=== PATIENT | female | born 1985 | race Caucasian/White ===

== ENCOUNTER 2017-06-16 07:34 | Emergency (ER) | payer OTHER ==
[2017-06-16] MEDS ORDERED: predniSONE 10 MG Tab PO ONE (07:49)
[2017-06-16] MEDS ORDERED: diphenhydrAMINE 25 MG Cap PO ONE (07:51)
[2017-06-16] MEDS ORDERED: predniSONE 20 MG Tab PO ONE (08:00)
[2017-06-16 08:55] VITALS: BP 130/85
--- NOTE | 2017-06-16 09:00 | EDM.PDOC ---
ED HPI GENERAL MEDICAL PROBLEM - General Chief Complaint: Allergic Reaction Stated Complaint: allergic reaction Time Seen by Provider: 06/16/17 07:45 Source of Information: Reports: Patient History Limitations: Reports: No Limitations - History of Present Illness INITIAL COMMENTS - FREE TEXT/NARRATIVE: Patient is a 32 year old woman who accidently took an unknown pill that her children's Day Care provider gave her. It has caused her to have hives and itch all over her body. She is having no breathing problems and she has no pain , fever or chills. No other complaints. Onset: Today, Sudden Onset Date: 06/16/17 Onset Time: 07:20 Duration: Minutes: (30), Getting Worse Location: Reports: Head, Face, Neck, Chest, Upper Extremity, Left, Upper Extremity, Right Quality: Reports: Other (Itching and hot.) Severity: Moderate Improves with: Reports: None Worsens with: Reports: None Context: Reports: Other (Just had taken unknown medication.) Associated Symptoms: Reports: No Other Symptoms - Related Data Allergies Allergy/AdvReac Type Severity Reaction Status Date / Time No Known Allergies Allergy Verified 01/31/16 04:04 Home Meds: Home Meds Omeprazole 20 mg PO DAILY 01/31/16 [History] Past Medical History - Past Health History Medical/Surgical History: Denies Medical/Surgical History Gastrointestinal History: Reports: GERD 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: , Spontaneous Endocrine/Metabolic History: Reports: Diabetes, Gestational, Obesity/BMI 30+ - Infectious Disease History Infectious Disease History: Reports: Chicken Pox - Past Surgical History HEENT Surgical History: Reports: Other (See Below) Musculoskeletal Surgical History: Reports: Other (See Below) Social & Family History - Family History OBGYN: Reports: Psychiatric: Reports: Anxiety, Depression - Tobacco Use Smoking Status *Q: Current Every Day Smoker Years of Tobacco use: 13 Packs/Tins Daily: 0.5 - Recreational Drug Use Recreational Drug Use: No ED ROS ALLERGIC REACTION - Review of Systems Review Of Systems: See Below Constitutional: Reports: No Symptoms HEENT: Reports: No Symptoms Respiratory: Reports: No Symptoms Cardiovascular: Reports: No Symptoms Endocrine: Reports: No Symptoms GI/Abdominal: Reports: No Symptoms : Reports: No Symptoms Musculoskeletal: Reports: No Symptoms Skin: Reports: Rash, Urticaria Neurological: Reports: No Symptoms Psychiatric: Reports: No Symptoms Hematologic/Lymphatic: Reports: No Symptoms Immunologic: Reports: No Symptoms ED EXAM GENERAL NO PERIP PULSE - Physical Exam Exam: See Below Exam Limited By: No Limitations General Appearance: Alert Eye Exam: Bilateral Eye: EOMI, Normal Fundi, Normal Inspection, PERRL Ears: Normal External Exam, Normal Canal, Hearing Grossly Normal, Normal TMs Nose: Normal Inspection, Normal Mucosa, No Blood Throat/Mouth: Normal Inspection, Normal Lips, Normal Teeth, Normal Gums, Normal Oropharynx, Normal Voice, No Airway Compromise Head: Atraumatic, Normocephalic Neck: Normal Inspection, Supple, Non-Tender, Full Range of Motion Respiratory/Chest: No Respiratory Distress, Lungs Clear, Normal Breath Sounds, No Accessory Muscle Use, Chest Non-Tender Cardiovascular: Normal Peripheral Pulses, Regular Rate, Rhythm, No Edema, No Gallop, No JVD, No Murmur, No Rub GI/Abdominal: Normal Bowel Sounds, Soft, Non-Tender, No Organomegaly, No Distention, No Abnormal Bruit, No Mass Back Exam: Normal Inspection, Full Range of Motion, NT Extremities: Normal Inspection, Normal Range of Motion, Non-Tender, Normal Capillary Refill, No Pedal Edema Neurological: Alert, Oriented, CN II-XII Intact, Normal Cognition, Normal Gait, Normal Reflexes, No Motor/Sensory Deficits Psychiatric: Normal Affect, Normal Mood Skin Exam: Erythema, Increased Warmth, Rash (Urticaria) Lymphatic: No Adenopathy Course - Vital Signs Text/Narrative:: Uneventful ED course. She was given 180 mg of Fexofenadine, 50 mg of oral benedryl and 80 mg of oral Prednisone and her rash faded and she felt much better. She will take Fexofenadine 180 mg po daily, Benedryl 50 mg po q 4 hours prn and Prednisnone in a 15 day taper: 50, 40, 30, 20, and 10 mg daily each for 3 days in a 15 day taper. She will go back to work on 06-19-17. She will return to ED if needed. Last Recorded V/S: Last Vital Signs Temp 36.3 C 06/16/17 08:50 Pulse 113 H 06/16/17 08:50 Resp 22 H 06/16/17 08:50 BP 130/85 06/16/17 08:50 Pulse Ox 100 06/16/17 08:50 - Orders/Labs/Meds Orders: Active Orders 24 hr Category Date Time Status Fexofenadine [Alice] Med 06/16/17 09:00 Active 180 mg PO DAILY Medication Orders Fexofenadine HCl (Alice) 180 mg PO DAILY AISHA Last Admin: 06/16/17 08:01 Dose: 180 mg Labs: Laboratory Tests 06/16/17 06/16/17 Range/Units 08:13 08:13 WBC 6.6 (4.5-12.0) X10-3/uL RBC 4.92 (3.23-5.20) x10(6)uL Hgb 14.9 (11.5-15.5) g/dL Hct 42.7 (30.0-51.3) % MCV 86.7 (80-96) fL MCH 30.3 (27.7-33.6) pg MCHC 35.0 (32.2-35.4) g/dL RDW 12.6 (11.5-15.5) % Plt Count 148 (125-369) X10(3)uL MPV 9.6 (7.4-10.4) fL Neut % (Auto) 74.7 (46-82) % Lymph % (Auto) 19.2 (13-37) % [place] % (Auto) 4.4 (4-12) % Eos % (Auto) 1 (1.0-5.0) % Baso % (Auto) 1 (0-2) % Neut # (Auto) 4.9 (1.6-8.3) # Lymph # (Auto) 1.3 (0.6-5.0) # [place] # (Auto) 0.3 (0.0-1.3) # Eos # (Auto) 0.1 (0.0-0.8) # Baso # (Auto) 0.0 (0.0-0.2) # Sodium 132 L (135-145) mmol/L Potassium 3.7 (3.5-5.3) mmol/L Chloride 103 (100-110) mmol/L Carbon Dioxide 21 L (23-29) mmol/L BUN 15 (5-20) mg/dL Creatinine 0.7 (0.6-1.3) mg/dL Est Cr Clr Drug Dosing TNP Estimated GFR (MDRD) > 60 (>60) BUN/Creatinine Ratio 21.4 H (9-20) Glucose 123 H (80-116) mg/dL Calcium 8.6 (8.6-10.2) mg/dL Total Bilirubin 0.9 (0.1-1.3) mg/dL AST 24 D (5-27) IU/L ALT 29 H D (14-26) IU/L Alkaline Phosphatase 39 L (56-112) IU/L Total Protein 7.4 (6.0-8.0) g/dL Albumin 4.3 (3.5-5.2) g/dL Globulin 3.1 g/dL Albumin/Globulin Ratio 1.4 Meds: Medications Generic Name Dose Route Start Last Admin Trade Name Freq PRN Reason Stop Dose Admin Fexofenadine HCl 180 mg 06/16/17 09:00 06/16/17 08:01 Alice PO 180 mg DAILY AISHA Administration Discontinued Medications Generic Name Dose Route Start Last Admin Trade Name Freq PRN Reason Stop Dose Admin Diphenhydramine HCl 50 mg 06/16/17 07:51 06/16/17 08:00 Benadryl PO 06/16/17 07:52 50 mg ONETIME ONE Administration Prednisone 80 mg 06/16/17 08:00 06/16/17 08:01 Prednisone PO 06/16/17 08:01 80 mg ONETIME ONE Administration Departure - Departure Time of Disposition: 09:05 Disposition: Home, Self-Care 01 Condition: Good Clinical Impression: Urticaria medicamentosa - Discharge Information Referrals: Kristian Rhoades MD [Primary Care Provider] - - My Orders Last 24 Hours: My Active Orders 06/16/17 09:00 Fexofenadine [Alice] 180 mg PO DAILY - Assessment/Plan Last 24 Hours: My Active Orders 06/16/17 09:00 Fexofenadine [Alice] 180 mg PO DAILY
== END 2017-06-16 09:10 | disposition home or self-care (01) ==
LOC: FB.ED 07:34
DX: L50.0 Allergic urticaria (principal); T50.905A Adverse effect of unspecified drugs, medicaments and biological substances, initial encounter; E11.9 Type 2 diabetes mellitus without complications; F17.210 Nicotine dependence, cigarettes, uncomplicated
CPT/HCPCS: 36415; 80053; 85025; 99283; A9270

== ENCOUNTER 2017-07-29 16:46 | Emergency (ER) | payer OTHER ==
[2017-07-29] MEDS ORDERED: Ondansetron 8 MG Tab.DIS PO ONE (16:54)
[2017-07-29] MEDS ORDERED: diphenhydrAMINE 50 MG Cap PO ONE (16:54)
--- NOTE | 2017-07-29 16:56 | EDM.PDOC ---
ED HPI GENERAL MEDICAL PROBLEM - General Stated Complaint: SOB Time Seen by Provider: 07/29/17 16:46 Source of Information: Reports: Patient History Limitations: Reports: No Limitations - History of Present Illness INITIAL COMMENTS - FREE TEXT/NARRATIVE: 32 y.o.w.f came to the ed because of tingling of her fingers, hyperventilation and extremely anxious. Pt is 5 days late with her period. Pt had those symptoms in the past but they are becoming more frequent now. Pt was out drinking last night, she smokes daily. She has left upper arm pain off on as well. No N/V/D. Pt denies stress at work or at home. No cause of her anxiety was found yet. BP 138/121 pulse 121 RR 25 Pulse ox 100% on RA. Onset: Today Onset Date: 07/29/17 Onset Time: 13:00 Duration: Hour(s):, Intermittent Location: Reports: Generalized Quality: Reports: Other (anxiety with hyperventilation) Severity: Moderate Improves with: Reports: Rest Context: Reports: Other Associated Symptoms: Reports: Other (finger tingling ) - Related Data Allergies Allergy/AdvReac Type Severity Reaction Status Date / Time No Known Allergies Allergy Verified 07/29/17 17:16 Home Meds: Home Meds Omeprazole 20 mg PO DAILY 01/31/16 [History] Past Medical History - Past Health History Medical/Surgical History: Denies Medical/Surgical History Gastrointestinal History: Reports: GERD [employer]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: , Spontaneous Endocrine/Metabolic History: Reports: Diabetes, Gestational, Obesity/BMI 30+ - Infectious Disease History Infectious Disease History: Reports: Chicken Pox - Past Surgical History HEENT Surgical History: Reports: Other (See Below) Musculoskeletal Surgical History: Reports: Other (See Below) Social & Family History - Family History OBGYN: Reports: Psychiatric: Reports: Anxiety, Depression - Tobacco Use Smoking Status *Q: Current Every Day Smoker Years of Tobacco use: 13 Packs/Tins Daily: 0.5 - Alcohol Use Days Per Week of Alcohol Use: 1 Number of Drinks Per Day: 1 Total Drinks Per Week: 1 - Recreational Drug Use Recreational Drug Use: No ED ROS GENERAL - Review of Systems Review Of Systems: See Below Constitutional: Reports: No Symptoms HEENT: Reports: No Symptoms Respiratory: Reports: Shortness of Breath Cardiovascular: Reports: No Symptoms Endocrine: Reports: No Symptoms GI/Abdominal: Reports: No Symptoms : Reports: No Symptoms Musculoskeletal: Reports: No Symptoms Skin: Reports: No Symptoms Neurological: Reports: Dizziness Psychiatric: Reports: Agitation, Anxiety Hematologic/Lymphatic: Reports: No Symptoms Immunologic: Reports: No Symptoms ED EXAM, GI/ABD - Physical Exam Exam: See Below Exam Limited By: No Limitations General Appearance: Alert, WD/WN, Anxious Eyes: Bilateral: Normal Appearance Ears: Normal External Exam Nose: Normal Inspection Throat/Mouth: Normal Inspection, Normal Lips Head: Atraumatic, Normocephalic Neck: Normal Inspection, Supple, Non-Tender, Full Range of Motion Respiratory/Chest: No Respiratory Distress, Lungs Clear, Normal Breath Sounds Cardiovascular: Normal Peripheral Pulses GI/Abdominal Exam: Normal Bowel Sounds, Soft, Non-Tender (Female) Exam: Deferred Rectal (Female) Exam: Deferred Back Exam: Normal Inspection, Full Range of Motion Extremities: Normal Inspection, Normal Range of Motion, Non-Tender Neurological: Alert, Oriented, CN II-XII Intact, Normal Cognition, Normal Gait Psychiatric: Normal Affect, Anxious Skin Exam: Warm, Dry, Intact, Normal Color, No Rash Lymphatic: No Adenopathy EKG INTERPRETATION EKG Date: 07/29/17 Time: 18:00 Rhythm: NSR Rate (Beats/Min): 85 [place]: Normal P-Wave: Present QRS: Normal ST-T: Normal QT: Normal Comparison: NA - No Prior EKG Course - Vital Signs Text/Narrative:: 32 y.o.w.f came to the ed because of tingling of her fingers, hyperventilation and extremely anxious. Pt is 5 days late with her period. Pt had those symptoms in the past but they are becoming more frequent now. Pt was out drinking last night, she smokes daily. She has left upper arm pain off on as well. No N/V/D. Pt denies stress at work or at home. No cause of her anxiety was found yet. BP 138/121 pulse 121 RR 25 Pulse ox 100% on RA. PE: WNWD WF hyperventilating, anxious, left arm pain off/on Labs: UA, HCG and UDS were neg ECG: NSR Impression: Anxiety attack Tx: Benadryl Reexam: Improved Plan: D/C with instructions Last Recorded V/S: Last Vital Signs Temp 37.2 C 07/29/17 16:46 Pulse 72 07/29/17 18:16 Resp 16 07/29/17 18:16 BP 133/89 07/29/17 17:40 Pulse Ox 100 07/29/17 18:16 - Orders/Labs/Meds Orders: Active Orders 24 hr Category Date Time Status EKG Documentation Completion [RC] ASDIRECTED Care 07/29/17 18:00 Active EKG 12 Lead [EK] Routine Ther 07/29/17 17:59 Ordered Labs: Laboratory Tests 07/29/17 07/29/17 07/29/17 Range/Units 17:06 17:06 17:06 Urine Color Yellow (YELLOW) Urine Appearance Clear (CLEAR) Urine pH 6.5 (5.0-6.5) Ur Specific [place] 1.020 (1.010-1.025) Urine Protein Negative (NEGATIVE) mg/dL Urine Glucose (UA) Normal (NEGATIVE) mg/dL Urine Ketones Negative (NEGATIVE) mg/dL Urine Occult Blood Negative (NEGATIVE) Urine Nitrite Negative (NEGATIVE) Urine Bilirubin Negative (NEGATIVE) Urine Urobilinogen Normal (NEGATIVE) mg/dL Ur Leukocyte Esterase Negative (NEGATIVE) Urine RBC 0-5 (0) Urine WBC 0-5 (0) Ur Squamous Epith Cells Moderate H (NS,R,O) Urine Bacteria Few H (NS) Urine HCG, Qual Negative (NEGATIVE) Urine Opiates Screen Negative (NEGATIVE) Ur Oxycodone Screen Negative (NEGATIVE) Ur Propoxyphene Screen Negative (NEGATIVE) Ur Barbituates Screen Negative (NEGATIVE) Ur Tricyclics Screen Negative (NEGATIVE) Ur Phencyclidine Scrn Negative (NEGATIVE) Ur Amphetamine Screen Negative (NEGATIVE) Urine MDMA Screen Negative (NEGATIVE) U Benzodiazepines Scrn Negative (NEGATIVE) U Cocaine Metab Screen Negative (NEGATIVE) U Marijuana (THC) Screen Negative (NEGATIVE) Meds: Medications Discontinued Medications Generic Name Dose Route Start Last Admin Trade Name Freq PRN Reason Stop Dose Admin Diphenhydramine HCl 50 mg 07/29/17 16:54 07/29/17 17:03 Benadryl PO 07/29/17 16:55 50 mg ONETIME ONE Administration Diphenhydramine HCl Confirm 07/29/17 17:11 Benadryl Administered 07/29/17 17:12 Dose 50 mg .ROUTE .STK-MED ONE Ondansetron HCl 8 mg 07/29/17 16:54 07/29/17 17:03 Zofran Odt PO 07/29/17 16:55 8 mg ONETIME ONE Administration Departure - Departure Time of Disposition: 18:14 Disposition: Home, Self-Care 01 Condition: Good Clinical Impression: Anxiety - Discharge Information Instructions: Hyperventilation, Panic Attacks Referrals: Kristian Rhoades MD [Primary Care Provider] - Forms: ED Department Discharge Additional Instructions: Please take Benadryl for your anxiety, please quit tobacco use, please f/u with your PMD, please come back if your symptoms get worse acutely - My Orders Last 24 Hours: My Active Orders 07/29/17 17:59 EKG 12 Lead [EK] Routine 07/29/17 18:00 EKG Documentation Completion [RC] ASDIRECTED - Assessment/Plan Last 24 Hours: My Active Orders 07/29/17 17:59 EKG 12 Lead [EK] Routine 07/29/17 18:00 EKG Documentation Completion [RC] ASDIRECTED
[2017-07-29] MEDS ORDERED: diphenhydrAMINE 50 MG Cap ONE (17:11)
[2017-07-29 17:49] VITALS: BP 133/89
== END 2017-07-29 18:20 | disposition home or self-care (01) ==
LOC: FB.ED 16:46
DX: F41.9 Anxiety disorder, unspecified (principal); F17.210 Nicotine dependence, cigarettes, uncomplicated
CPT/HCPCS: 80305; 81001; 81025; 93005; 99283; A9270

== ENCOUNTER 2021-07-06 08:31 | Emergency (ER) | payer OTHER ==
--- NOTE | 2021-07-06 08:47 | EDM.PDOC ---
ED HPI GENERAL MEDICAL PROBLEM - General Stated Complaint: left sided facial dropping, jaw pain Time Seen by Provider: 07/06/21 08:45 Source of Information: Reports: Patient History Limitations: Reports: No Limitations - History of Present Illness INITIAL COMMENTS - FREE TEXT/NARRATIVE: Patient was diagnosed with tooth infection yesterday and was prescribed amoxicillin and today she noticed ptosis on the left and drooping on the rt. 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: , Spontaneous Psychiatric History: Reports: Anxiety Endocrine/Metabolic History: Reports: Diabetes, Gestational, Obesity/BMI 30+ - Infectious Disease History Infectious Disease History: Reports: Chicken Pox - Past Surgical History HEENT Surgical History: Reports: Other (See Below) Musculoskeletal Surgical History: Reports: Other (See Below) Social & Family History - Family History OBGYN: Reports: Psychiatric: Reports: Anxiety, Depression ED ROS GENERAL - Review of Systems Review Of Systems: See Below Constitutional: Reports: No Symptoms HEENT: Reports: No Symptoms Respiratory: Reports: No Symptoms Cardiovascular: Reports: No Symptoms Endocrine: Reports: No Symptoms GI/Abdominal: Reports: No Symptoms : Reports: No Symptoms Musculoskeletal: Reports: No Symptoms Skin: Reports: No Symptoms Neurological: Reports: No Symptoms Psychiatric: Reports: No Symptoms Hematologic/Lymphatic: Reports: No Symptoms ED EXAM, GENERAL - Physical Exam Exam: See Below Exam Limited By: No Limitations General Appearance: Alert, No Apparent Distress Ears: Normal External Exam, Normal Canal, Hearing Grossly Normal Nose: Normal Inspection, Normal Mucosa, No Blood Throat/Mouth: Normal Inspection, Normal Lips, Normal Teeth, Normal Gums, Normal Oropharynx, Normal Voice Head: Atraumatic, Normocephalic, Other (Left ptosis Rt facial droop) Neck: Normal Inspection, Supple, Non-Tender, Full Range of Motion Respiratory/Chest: No Respiratory Distress, Lungs Clear, Normal Breath Sounds, No Accessory Muscle Use, Chest Non-Tender Cardiovascular: Normal Peripheral Pulses, Regular Rate, Rhythm, No Edema GI/Abdominal: Normal Bowel Sounds, Soft, Non-Tender, No Organomegaly, No Distention Back Exam: Normal Inspection, Full Range of Motion Extremities: Normal Inspection, Normal Range of Motion, Non-Tender, No Pedal Edema, Normal Capillary Refill Neurological: Alert, Oriented, CN II-XII Intact, Normal Cognition Course - Vital Signs Last Recorded V/S: Last Vital Signs Temp 37.0 C 07/06/21 08:31 Pulse 89 07/06/21 08:31 Resp 18 07/06/21 08:31 BP 144/57 H 07/06/21 08:31 Pulse Ox 96 07/06/21 08:31 Departure - Departure Time of Disposition: 09:15 Disposition: Home, Self-Care 01 Condition: Good Clinical Impression: Small's palsy - Discharge Information Prescriptions: Acyclovir 400 mg PO TID #30 tablet predniSONE [Prednisone] 20 mg PO DAILY #10 tablet Additional Instructions: Please read discharge instructions on Small's Palsy Take prednisone 20 mg daily for 10 days Acyclovir/Zovirax 400 mg 3 times daily for 10 days Follow up after a week if no improvement of symptoms. Sepsis Event Note (ED) - Focused Exam Vital Signs: Vital Signs Temp Pulse Resp BP Pulse Ox 07/06/21 08:31 37.0 C 89 18 144/57 H 96
[2021-07-06 08:54] VITALS: BP 144/57; PULSE 89
== END 2021-07-06 09:30 | disposition home or self-care (01) ==
LOC: FB.ED 08:31
DX: G51.0 Bell's palsy (principal); K21.9 Gastro-esophageal reflux disease without esophagitis; E66.9 Obesity, unspecified; Z79.899 Other long term (current) drug therapy
CPT/HCPCS: 99283

== ENCOUNTER 2023-02-02 05:42 | Emergency (ER) | payer OTHER ==
[2023-02-02 06:11] VITALS: BP 153/100; PULSE 89
[2023-02-02 06:39] LABS: BASOPHILS ABSOLUTE AUTO 0.1 x10-3/uL (0.0-0.1); BASOPHILS PERCENT AUTO 1.3 % (0.2-1.5); EOSINOPHILS ABSOLUTE AUTO 0.1 x10-3/uL (0.0-0.8); EOSINOPHILS PERCENT AUTO 3.2 % (0.6-8.1); HEMATOCRIT 31.1 % (34.2-48.2); HEMOGLOBIN 9.4 g/dL (11.4-15.5); LYMPHOCYTES ABSOLUTE AUTO 1.3 x10-3/uL (1.0-4.4); LYMPHOCYTES PERCENT AUTO 30.4 % (18.4-52.1); MEAN CORPUSCULAR HEMOGLOBIN 18.8 pg (23.9-33.9); MEAN CORPUSCULAR HGB CONC 30.1 g/dL (31.9-34.8); MEAN CORPUSCULAR VOLUME 62.5 fL (76.7-100.5); MEAN PLATELET VOLUME 8.8 fL (7.1-12.4); MONOCYTES ABSOLUTE AUTO 0.4 x10-3/uL (0.3-1.0); NEUTROPHILS ABSOLUTE AUTO 2.5 x10-3/uL (1.5-6.3); NEUTROPHILS PERCENT AUTO 56.1 % (30.8-76.2); PLATELET COUNT,PLT 179 x10(3)uL (151-488); RED CELL DISTRIBUTION WIDTH 20.7 % (12.3-16.5); WHITE BLOOD CELL COUNT,WBC 4.4 x10-3/uL (3.0-10.3)
[2023-02-02 06:43] LABS: BLOOD UREA NITROGEN,BUN 10 mg/dL (7-18); BUN/CREATININE RATIO 12.5 (9-20); CALCIUM 8.3 mg/dL (8.6-10.2); CARBON DIOXIDE,CO2 27 mmol/L (21-32); CHLORIDE,CL 101 mmol/L (100-110); CREATININE 0.8 mg/dL (0.55-1.02); EST CRCL DRUG DOSING (CG) 82.33 mL/min; ESTIMATED GFR 97 mL/min (>60); GLUCOSE RANDOM 111 mg/dL (80-116); POTASSIUM,K 4.2 mmol/L (3.5-5.3); SODIUM,NA 137 mmol/L (135-145)
[2023-02-02 06:51] LABS: RED BLOOD CELL COUNT 4.98 x10(6)uL (3.60-5.20)
[2023-02-02] MEDS ORDERED: Ketorolac 30 MG/ML SDV IM STA (07:23)
== END 2023-02-02 07:55 | disposition home or self-care (01) ==
LOC: FB.ED 05:42
DX: R07.89 Other chest pain (principal); D64.9 Anemia, unspecified; E83.51 Hypocalcemia; K21.9 Gastro-esophageal reflux disease without esophagitis; F17.210 Nicotine dependence, cigarettes, uncomplicated; E66.9 Obesity, unspecified; Z68.33 Body mass index [BMI] 33.0-33.9, adult; Z86.16 Personal history of COVID-19; Z98.890 Other specified postprocedural states; Z79.899 Other long term (current) drug therapy
CPT/HCPCS: 36415; 71046; 80048; 85025; 96372; 99283; J1885